=== PATIENT | male | born 1975 | race Caucasian/White ===

== ENCOUNTER 2019-01-28 15:25 | Emergency (ER) | payer OTHER ==
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
[2019-01-28 15:32] VITALS: BMI 29.1
[2019-01-28] MEDS ORDERED: KETOROLAC TROMETHAMINE 60 MG/2 ML VIAL IM ONE (16:12)
[2019-01-28] MEDS ORDERED: LIDOCAINE 5% TOPICAL PATCH TP ONE (16:19)
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
[2019-01-28] MEDS ORDERED: KETOROLAC TROMETHAMINE 60 MG/2 ML VIAL ONE (16:40)
[2019-01-28] MEDS ORDERED: LIDOCAINE 5% TOPICAL PATCH ONE (16:41)
[2019-01-28 17:23] VITALS: BP 162/112; PULSE 107; TEMP 98.1
[2019-01-28] MEDS ORDERED: LIDOCAINE PATCH REMOVAL MC SCH (22:00)
== END 2019-01-28 18:10 | disposition home or self-care (01) ==
LOC: JER 15:25
PROC: 3E0233Z Introduction of Anti-inflammatory into Muscle, Percutaneous Approach (ICD-10-PCS; principal; 2019-01-28)
DX: M62.830 Muscle spasm of back (principal); V43.52XA Car driver injured in collision with other type car in traffic accident, initial encounter; Y92.414 Local residential or business street as the place of occurrence of the external cause; Y93.89 Activity, other specified; Y99.8 Other external cause status
CPT/HCPCS: 72050-TC-FY; 72100-TC-FY; 99282-25